=== PATIENT | female | born 1995 | race Caucasian/White ===

== ENCOUNTER 2023-08-20 21:22 | Emergency (ER) | payer MEDICAID ==
[~2023-08-20] VITALS: Ht 162.6 cm; Wt 81.6 kg
[2023-08-20 21:40] VITALS: BP_SYST 119; PULSE 93; RESP 20; TEMP 97; O2SAT 99
[2023-08-20] MEDS: METOCLOPRAMIDE HCL 10 MG/2 ML VIAL IVP ONE (22:11)
[2023-08-20 22:15] LABS: BILIRUBIN,URINE NEGATIVE (NEGATIVE); BLOOD, URINE NEGATIVE (NEGATIVE); CLARITY/URINE CLEAR (CLEAR); COLOR,URINE YELLOW (YELLOW); GLUCOSE,URINE NEGATIVE (NEGATIVE); KETONES,URINE 2+ (NEGATIVE); LEUKOCYTE ESTERASE ,URINE NEGATIVE (NEGATIVE); NITRITE, URINE NEGATIVE (NEGATIVE); PROTEIN URINE NEGATIVE (NEGATIVE); UROBILINOGEN,URINE 0.2 (0.2-1.0)
[2023-08-20 22:15] LABS: BASOPHILS % (AUTO) 0.2 % (0.0-2.0); EOSINOPHILS % (AUTO) 0.2 % (0.0-4.0); HEMATOCRIT 41.1 % (36-48); HEMOGLOBIN 13.8 g/dL (12.0-16.0); LYMPHOCYTES # (AUTO) 2.3 K/uL (1.0-5.5); LYMPHOCYTES % (AUTO) 13.6 % (20.5-51.5); MEAN CORPUSCULAR HEMOGLOBIN 26 pg (27-31); MEAN CORPUSCULAR HGB CONC 34 % (32-36); MEAN CORPUSCULAR VOLUME 76 fL (79.0-98.0); MONOCYTES # (AUTO) 0.7 K/uL (0.0-1.0); NEUTROPHILS # (AUTO) 13.6 K/uL (1.8-7.7); PLATELET COUNT (AUTO) 366 K/uL (130-430); RED BLOOD CELL COUNT(AUTO) 5.39 MIL/uL (4.2-6.2); WHITE BLOOD COUNT (AUTO) 16.6 K/uL (4.8-10.8)
[2023-08-20] MEDS: NACL 0.9% 1,000 ML IV ONE ×2 (22:17→23:44)
[2023-08-20 22:26] LABS: CALCIUM 9.8 mg/dL (8.4-11.0); CREATININE 0.94 mg/dL (0.55-1.30)
[2023-08-20 22:30] LABS: POTASSIUM 2.9 mmol/L (3.5-5.1)
[2023-08-20] MEDS: DIPHENHYDRAMINE INJ 50 MG/ML VIAL IVP ONE (22:47)
[2023-08-20] MEDS: HALOPERIDOL LACTATE 5 MG/ML VIAL IVP ONE (22:51)
[2023-08-20] MEDS: POTASSIUM CHLORIDE 20 MEQ TABLET.ER PO ONE (23:33)
[2023-08-20 23:56] LABS: BILIRUBIN,URINE NEGATIVE (NEGATIVE); BLOOD, URINE NEGATIVE (NEGATIVE); CLARITY/URINE SL CLOUDY (CLEAR); COLOR,URINE YELLOW (YELLOW); GLUCOSE,URINE NEGATIVE (NEGATIVE); KETONES,URINE 2+ (NEGATIVE); LEUKOCYTE ESTERASE ,URINE NEGATIVE (NEGATIVE); NITRITE, URINE NEGATIVE (NEGATIVE); PROTEIN URINE NEGATIVE (NEGATIVE); UROBILINOGEN,URINE 0.2 (0.2-1.0)
[2023-08-21 00:05] LABS: BARBITURATE, URINE NEGATIVE (NEG <=200)
[2023-08-21 00:06] LABS: BENZODIAZEPINE, URINE NEGATIVE (NEG <=150); CANNABINOID, URINE POSITIVE (NEG <=50); COCAINE, URINE NEGATIVE (NEG <=150); METHAMPHETAMINES SCREEN,URINE NEGATIVE (NEG <=500); OPIATE, URINE NEGATIVE (NEG <=100); PHENCYCLIDINE SCREEN,URINE NEGATIVE (NEG <=25); UR TRICYCLIC ANTIDEPRESSANTS NEGATIVE (NEG <=300); URINE AMPHETAMINE NEGATIVE (NEG <=500); URINE METHADONE NEGATIVE (NEG <=200); URINE OXYCODONE SCREEN NEGATIVE (NEG <=100)
[2023-08-21] MEDS: PANTOPRAZOLE SODIUM 40 MG/VIAL (PROTONIX) IVP ONE (01:36)
[2023-08-21] MEDS ORDERED: ONDA-8 TL (02:19)
[2023-08-21 02:28] VITALS: BP_SYST 127; PULSE 103; RESP 16; TEMP 98.6; O2SAT 98
== END 2023-08-21 02:31 | disposition home or self-care (01) ==
LOC: SED 21:22
DX: R11.2 Nausea with vomiting, unspecified (principal); F12.10 Cannabis abuse, uncomplicated; Z79.899 Other long term (current) drug therapy
CPT/HCPCS: 99285; 96374; 96361; 96375 ×2; 80307; 80048; 85025; 36415; 81025; 81001; 74176; J1200; J1630; J2765; J7030; C9113; 81003